=== PATIENT | female | born 1990 | race Two or more races ===

== ENCOUNTER 2019-12-24 06:00 | Day surgery (SDC) | payer OTHER ==
[~2019-12-24 06:00] MED LIST: GENTLE LAXATIVE5 MG PO
[2019-12-24] MEDS ORDERED: PERCOCET 5-3251 EACH PO (09:08)
[2019-12-24] MEDS ORDERED: NEURONTIN600 M1 PO (09:08)
[2019-12-24] MEDS ORDERED: POLY119PG PO (09:08)
== END 2019-12-24 13:05 | disposition home or self-care (01) ==
LOC: CIR.AMB 06:00
PROVIDERS: ATTEND Surgery
DX: K80.10 Calculus of gallbladder with chronic cholecystitis without obstruction (principal); K42.9 Umbilical hernia without obstruction or gangrene; K43.2 Incisional hernia without obstruction or gangrene

== ENCOUNTER 2020-06-09 06:00 | Day surgery (SDC) | payer OTHER ==
[~2020-06-09 06:00] MED LIST changes: +NEURONTIN600 M1 PO; +PERCOCET 5-3251 EACH PO; +POLY119PG PO
[2020-06-09] MEDS ORDERED: POLY119PG PO (10:09)
[2020-06-09] MEDS ORDERED: SURFAK240 M1 PO (10:09)
[2020-06-09] MEDS ORDERED: PERCOCET 5-3251 EACH PO (10:10)
[2020-06-09] MEDS ORDERED: SULFAMETHOXAZO1 EACH PO (10:10)
[2020-06-09] MEDS ORDERED: NEURONTIN800 MG PO (10:11)
== END 2020-06-09 13:40 | disposition home or self-care (01) ==
LOC: CIR.AMB 06:00
PROVIDERS: ATTEND Surgery
DX: K42.0 Umbilical hernia with obstruction, without gangrene (principal); K43.0 Incisional hernia with obstruction, without gangrene; K80.50 Calculus of bile duct without cholangitis or cholecystitis without obstruction; Z20.828 Contact with and (suspected) exposure to other viral communicable diseases